=== PATIENT | male | born 1945 | race Caucasian/White ===

== ENCOUNTER 2017-08-01 23:06 | Emergency (ER) | payer MEDICARE, OTHER ==
[~2017-08-01] VITALS: Ht 167.6 cm; Wt 65.0 kg
[2017-08-01 23:10] VITALS: Ht 167.6 cm; Wt 65.0 kg
[2017-08-02] MEDS ORDERED: IBUP-1542 PO (01:23)
[2017-08-02] MEDS ORDERED: AMOX500C2 PO (01:24)
[2017-08-02] MEDS ORDERED: IBUPROFEN 600 MG TAB PO ONE (01:30)
[2017-08-02] MEDS ORDERED: AMOXICILLIN 500 MG CAP PO ONE (01:30)
--- NOTE | 2017-08-02 01:48 | ERD ---
ER Documentation Chief Complaint Chief Complaint left earache x 2 days HPI Is a 9-year-old male with past medical history of hypertension presents to the ED with concerns of left ear pain 2 days. Patient states 1 week ago he had some ear itching. Patient does report using tips. Patient states 2 days ago he developed a sharp, throbbing pain in his left ear which is now become constant. Patient denies taking any medication. Patient denies any fever, sore throat, rhinorrhea, cough, abdominal pain, nausea or vomiting. Patient states he did have some flulike symptoms 1 week ago however those other symptoms have resolved at this time. No recent travel. No sick contacts. Patient denies any chest pain, shortness of breath, headache, blurry vision, unilateral weakness, slurred speech, difficulty ambulating or loss of consciousness. ROS All systems reviewed and are negative except as per history of present illness. Medications Home Meds Active Scripts Amoxicillin* (Amoxicillin*) 500 Mg Cap, 500 MG PO BID for 10 Days, CAP Prov:CINDY NUGENT PA-C 08/02/17 Ibuprofen* (Motrin*) 600 Mg Tab, 600 MG PO Q8, #15 TAB Prov:CINDY NUGENT PA-C 08/02/17 Allergies Allergies: Coded Allergies: No Known Drug Allergies (Verified Allergy, Unknown, 08/01/17) PMhx/Soc History of Surgery: Yes (sacral surgery, cataracts OU) Hx Respiratory Disorders: Yes (asthma) Hx Cardiac Disorders: Yes (HTN) Hx Alcohol Use: No Hx Substance Use: No Hx Tobacco Use: Yes Smoking Status: Current every day smoker Physical Exam Vitals Vital Signs Date Time Temp Pulse Resp B/P Pulse Ox O2 Delivery O2 Flow Rate FiO2 08/01/17 23:10 98.1 87 20 185/87 98 Physical Exam GENERAL: Well-developed, well-nourished male. Appears in no acute distress. In full sentences HEAD: Normocephalic, atraumatic. No deformities or ecchymosis. EYE: Pupils equal, round, and reactive to light. EOMs intact. No conjunctival erythema. No eye discharge. ENT: External ear without any masses or tenderness. Left auditory canal appears erythematous and left tympanic membrane appears erythematous and bulging. Nasal mucosa pink with no discharge. Oropharynx is pink without any tonsillar erythema or exudates. No uvula deviation. No kissing tonsils. Trismus. No drooling. NECK: Supple. No meningismus. Normal ROM of the neck. LUNG: Clear to auscultation bilaterally. No rhonchi, wheezing, rales or coarse breath sounds. HEART: Regular rate and rhythm. No murmurs, rubs or gallops. BACK: No midline tenderness. EXTREMITIES: Equal pulses bilaterally. No peripheral clubbing, cyanosis or edema. No unilateral leg swelling. NEUROLOGIC: Alert and oriented to person, place and time. Moving all four extremities. 5/5 strength in all extremities. Normal speech. Steady gait SKIN: Normal color. Warm and dry. No rashes or lesions. Results 24 hrs Current Medications Medications (Trade) Dose Ordered Sig/Jane Route PRN Reason Start Time Stop Time Status Last Admin Dose Admin Ibuprofen (Motrin) 600 mg ONCE ONCE PO 08/02/17 01:30 08/02/17 01:31 DC 08/02/17 01:25 Amoxicillin (Amoxicillin) 500 mg ONCE ONCE PO 08/02/17 01:30 08/02/17 01:31 DC 08/02/17 01:42 Procedures/MDM MEDICAL DECISION MAKING: This is a 72-year-old male who presents to the ED with concerns of left ear pain 2 days. Vital signs were reviewed. Patient was afebrile. Patient was not hypoxic. Ear exam revealed left tympanic membrane erythema and bulging consistent with otitis media. Given these findings, the patient's presentation is most consistent with acute otitis media.. Low suspicion for tympanic membrane perforation, mastoiditis, otic barotrauma, TMJ dysfunction, meningitis , strep pharyngitis, sepsis. Low suspicion for hypertensive urgency or hypertensive emergency. Was advised to go home and take his blood pressure medication as directed. Patient was encouraged to follow-up with his primary care physician for his elevated blood pressure. PRESCRIPTIONS: Amoxicillin, ibuprofen DISCHARGE: At this time, patient is stable for discharge and outpatient management. I have instructed the patient to follow-up with his/her primary care physician in 1-2 days. I have discussed with the patient the possibility of needing to see a specialist for further workup and diagnostic studies if the pain persists. I have instructed the patient to promptly return to the ER at any time for any new or worsening symptoms including increased pain, fever, swelling, discharge or hearing loss. The patient and/or family expressed understanding of and agreement with this plan. All questions were answered. Home care instructions were provided. Disclaimer: Inadvertent spelling and grammatical errors are likely due to EHR/ dictation software use and do not reflect on the overall quality of patient care. Also, please note that the electronic time recorded on this note does not necessarily reflect the actual time of the patient encounter. Patients blood pressure was elevated (>120/80) but appears stable without evidence of hypertensive emergency, hypertensive urgency or end-organ failure. I had discussion with the patient about the risks of hypertension. I have advised the patient to follow up with his/her primary care physician for outpatient monitoring and treatment for hypertension in 2-3 days. I have instructed the patient to return to the ER for any new or worsening symptoms including chest pain, shortness of breath, headache, blurred vision, confusion, nausea, vomiting or LOC. Departure Diagnosis: Primary Impression: Otitis media of left ear Otitis media type: unspecified Qualified Code: H66.92 - Left otitis media, unspecified otitis media type Condition: Stable Patient Instructions: Otitis Media, Abx Tx (Adult) Referrals: [facility] YOU HAVE RECEIVED A MEDICAL SCREENING EXAM AND THE RESULTS INDICATE THAT YOU DO NOT HAVE A CONDITION THAT REQUIRES URGENT TREATMENT IN THE EMERGENCY DEPARTMENT. FURTHER EVALUATION AND TREATMENT OF YOUR CONDITION CAN WAIT UNTIL YOU ARE SEEN IN YOUR DOCTORS OFFICE WITHIN THE NEXT 1-2 DAYS. IT IS YOUR RESPONSIBILITY TO MAKE AN APPOINTMENT FOR FOLOW-UP CARE. IF YOU HAVE A PRIMARY DOCTOR --you should call your primary doctor and schedule an appointment IF YOU DO NOT HAVE A PRIMARY DOCTOR YOU CAN CALL OUR PHYSICIAN REFERRAL HOTLINE AT IF YOU CAN NOT AFFORD TO SEE A PHYSICIAN YOU CAN CHOSE FROM THE FOLLOWING [facility] [address] [facility] [address] [facility] [facility] [address] [facility] [address] [facility] [address] [facility] [facility]. [address] [facility] [facility] YOU HAVE RECEIVED A MEDICAL SCREENING EXAM AND THE RESULTS INDICATE THAT YOU DO NOT HAVE A CONDITION THAT REQUIRES URGENT TREATMENT IN THE EMERGENCY DEPARTMENT. FURTHER EVALUATION AND TREATMENT OF YOUR CONDITION CAN WAIT UNTIL YOU ARE SEEN IN YOUR DOCTORS OFFICE WITHIN THE NEXT 1-2 DAYS. IT IS YOUR RESPONSIBILITY TO MAKE AN APPOINTMENT FOR FOLOW-UP CARE. IF YOU HAVE A PRIMARY DOCTOR --you should call your primary doctor and schedule and appointment IF YOU DO NOT HAVE A PRIMARY DOCTOR YOU CAN CALL OUR PHYSICIAN REFERRAL HOTLINE AT . IF YOU CAN NOT AFFORD TO SEE A PHYSICIAN YOU CAN CHOSE FROM THE FOLLOWING [facility] INSTITUTIONS: [facility] [address] [place] [address] [facility] [address] [place] [address] [facility] [address] [place] [address] Additional Instructions: Call your primary care doctor TOMORROW for an appointment during the next 1-2 days.See the doctor sooner or return here if your condition worsens before your appointment time. CINDY NUGENT PA-C Aug 02, 2017 01:48
== END 2017-08-02 01:59 | disposition home or self-care (01) ==
LOC: FTE 23:06
DX: H66.92 Otitis media, unspecified, left ear (principal); J45.909 Unspecified asthma, uncomplicated; I10 Essential (primary) hypertension; F17.210 Nicotine dependence, cigarettes, uncomplicated
CPT/HCPCS: 99283